=== PATIENT | male | born 1945 | race Caucasian/White ===

== ENCOUNTER 2017-03-23 13:05 | Day surgery (SDC) | payer MEDICARE, BC ==
[2017-03-16 12:25] LABS: HEMATOCRIT 38.3 % (40.0-51.0); HEMOGLOBIN 12.1 g/dL (13.6-17.8)
[~2017-03-23] VITALS: Ht 182.9 cm; Wt 112.9 kg
--- NOTE | ~2017-03-23 | OP ---
Record Of Operation [facility] [address] [place]. [address] NAME: ALEKS BERGER : 43 STATUS : [facility]#: [id number] AGE: 71 ADM/REG DATE : 03/23/17 MR#: [id number] REPORT SERV DATE: 03/23/17 DICTATED BY: Dolly LUDWIG DATE: 03/23/17 REPORT STATUS : Draft TRANSCRIBED BY: MODL DATE: 03/23/17 DATE OF PROCEDURE: 03/23/2017 PREOPERATIVE DIAGNOSIS: Lower urinary tract symptoms with indeterminate prostatic urethral lesion. POSTOPERATIVE DIAGNOSIS: Lower urinary tract symptoms with indeterminate prostatic urethral lesion. PROCEDURE: Cystoscopy, bilateral retrograde pyelography, biopsy of prostatic urethra x4, fulguration, examination under anesthesia. ANESTHESIA: General with LMA. COMPLICATIONS: None. DRAINS: 20-Bolivian two-way Fisher catheter. BRIEF HISTORY: Mr. Berger is a 71-year-old white male with lower urinary tract symptoms. He has had some infections and did not improve on tamsulosin b.i.d. I performed cystoscopy with transrectal ultrasonography, it showed only a 28 g gland and cystoscopy revealed a small nonobstructing prostate with a papillary lesion in the middle of the prostatic urethra just above the verumontanum. I felt that we had to biopsy this to rule out malignancy. The risks of bleeding, infection, anesthesia, injury to adjacent organs, failure to improve symptoms, need for postoperative catheter, etc., were all discussed. There were no unanswered questions. DESCRIPTION OF PROCEDURE: Under excellent general anesthesia, the patient was prepped and draped in standard lithotomy position. Digital exam revealed a 1+ symmetric smooth prostate gland. Cystoscopy was performed with a 30 and 70-degree lenses and revealed a normal anterior urethra. The posterior urethra showed a minimally obstructing prostate gland with the aforementioned lesion about 1 cm in size in the prostatic urethra just proximal to the veru, more on the left than the right. Inspection of the bladder revealed no tumors, stones, or foreign bodies with normal orifices. An 8-Bolivian cone-tipped catheter was used to perform bilateral retrograde pyelography and showed normal caliber ureters without filling defect or obstruction and good drainage. I then used the cold cup biopsy forceps to biopsy this lesion in two parts and sent it as specimen #1 and then biopsied the base of the lesion. I then thoroughly fulgurated this area just above and lateral to the verumontanum. The patient tolerated the procedure well. I inserted a 20-Bolivian two-way Fisher catheter. I plan to discharge Mr. Berger as an outpatient with the following instructions. DISCHARGE INSTRUCTIONS: 1. Home today with Fisher catheter. 2. Pyridium 200 mg one p.o. t.i.d. p.r.n. bladder pain #15. 3. Okay to remove catheter in the morning. Follow up in my office in 1-2 weeks to review pathology. Record Of Operation [facility] [id number] [place]. [address] NAME: ALEKS BERGER : 43 STATUS : [facility]#: [id number] AGE: 71 ADM/REG DATE : 03/23/17 MR#: [id number] REPORT SERV DATE: 03/23/17 DICTATED BY: Dolly LUDWIG DATE: 03/23/17 REPORT STATUS : Draft TRANSCRIBED BY: THOMAS DATE: 03/23/17 ROSSANA/THOMAS Dolly Ludwig M.D. / [id number] CC: Korina Burciaga M.D.
[~2017-03-23 13:05] MED LIST: ASA5GR PO; ASAB PO; CALTRA600D PO; CEFT2 PO; DIABETA5 PO; FLOMAX4 PO; FLONASE NAS; GLUCOPHAGE1000 MG PO; GLUCOTRO10 PO; GLUCOTROL5 PO; HALF81 PO; HCTZ25B PO; HUMULIN R1 ML SC; HYDROCHLOROT25 MG PO; IMDUR30 PO; INSNOV7030 SC; INSNOVR SC; LEVEMIR SC; LEVOTHYROXIN50 MCG PO; LIPITOR40 PO; LOTE40 PO; NEUR300 PO; NORCO1 TA1 PO; NORV25 PO; NORV5 PO; SALONPAS-HOT TOP; SPIRIVA INH; TOPXL100 PO; TOPXL50 PO; ULTRAM50 PO; VENTOLIN HFA INH; Z300 PO; ZANTAC150 MG PO
== END 2017-03-23 17:49 | disposition home or self-care (01) ==
LOC: SDC 13:05
PROC: BT141ZZ Fluoroscopy of Kidneys, Ureters and Bladder using Low Osmolar Contrast (ICD-10-PCS; 2017-03-23)
PROC: 0TBD8ZX Excision of Urethra, Via Natural or Artificial Opening Endoscopic, Diagnostic (ICD-10-PCS; principal; 2017-03-23 15:00)
DX: D41.3 Neoplasm of uncertain behavior of urethra (principal); N34.2 Other urethritis; E78.00 Pure hypercholesterolemia, unspecified; E11.9 Type 2 diabetes mellitus without complications; E03.9 Hypothyroidism, unspecified; K21.9 Gastro-esophageal reflux disease without esophagitis; I48.0 Paroxysmal atrial fibrillation; I10 Essential (primary) hypertension; M54.9 Dorsalgia, unspecified; Z88.5 Allergy status to narcotic agent; Z88.8 Allergy status to other drugs, medicaments and biological substances; Z79.899 Other long term (current) drug therapy
CPT/HCPCS: 74420; 82962; 85014; 85018; 88305; 93005; A9270-GY; J2405; J3010; Q9967